=== PATIENT | female | born 1940 | race Caucasian/White ===

== ENCOUNTER → 2025-05-22 11:52 | Outpatient (REF) | payer MEDICARE, OTHER, SELFPAY | LOC: EMG 11:52 | PROVIDERS: ATTENDING PHYSICIAN Orthopaedic Surgery Hand Surgery; FAMILY PHYSICIAN Internal Medicine | DX: M25.512 Pain in left shoulder (principal); M75.41 Impingement syndrome of right shoulder; M25.511 Pain in right shoulder; R20.0 Anesthesia of skin; R20.2 Paresthesia of skin | CPT/HCPCS: 73200; 95886; 95909 ==

== ENCOUNTER → 2025-05-25 11:34 | Outpatient (REF) | payer MEDICARE, OTHER, SELFPAY ==
[2025-05-25 12:29] LABS: Hematocrit 38.4 % (37.0-47.0); Hemoglobin 12.9 g/dL (12.0-16.0); Mean Corp Hgb Conc. 33.6 g/dL (33.0-37.0); Mean Corpuscular Volume 89.7 fL (81.0-99.0); Nucleated Red Blood Cells % 0 %; Platelet Count 313 10^3/uL (130-400); Red Cell Dist. Width 14.0 % (11.5-14.5)
[2025-05-25 14:25] LABS: Blood Urea Nitrogen 17 mg/dl (7-17); Calcium 10.0 mg/dl (8.4-10.2); Carbon Dioxide 28 mmol/L (22-30); Chloride 102 mmol/L (98-107); Glucose 93 mg/dl (70-99); Potassium 4.7 mmol/L (3.5-5.1); Sodium 136 mmol/L (135-145); eGFR > 60.00
== END ==
LOC: REG 11:34
PROVIDERS: ATTENDING PHYSICIAN Orthopaedic Surgery Hand Surgery; FAMILY PHYSICIAN Internal Medicine
DX: Z01.818 Encounter for other preprocedural examination (principal)
CPT/HCPCS: 36415; 80048; 85025

== ENCOUNTER 2025-05-29 07:03 | Day surgery (SDC) | payer MEDICARE, OTHER, SELFPAY ==
--- NOTE | 2025-05-25 15:17 | CM ---
Orthopedic Case Management Assessment
Demographics: Patient lives with spouse at [address], [place] [address], in a [address] community with elevator.
Living situation: 55+ community with elevator, patient is independent with adl's and ambulation.
Support Person Post Operatively: Patient's spouse who is 88 y.o to assist with transportation.
Support Person Post Operatively: Spouse
History of
VN: No
SNF: No
Outpatient [facility]
Has patient purchased required equipment: Patient has a Sling
PCP: Dr Kee
Pharmacy: [facility] in [place]
Post Operative Discharge Plan: Patient has been scheduled for same day surgery with Dr Gomez for Left shoulder surgery, patient reports that her 88 y.o spouse plans to support her and provided transportation to hospital and patient will schedule
her outpatient physical therapy with [facility] when cleared by physician.
[2025-05-29] VITALS (9 sets, daily range): BP systolic 124–139; BP diastolic 66–82; BMI 32.8
[2025-05-29] MEDS: CELEBREX 200 MG PO (08:46)
[2025-05-29] MEDS: NORMOSOL-R/PLASMALYTE-A 1000 IV (08:46)
[2025-05-29] MEDS: TYLENOL 1000 MG PO (08:46)
[2025-05-29] MEDS: VANCOCIN 530 MG IV (09:01)
--- NOTE | 2025-05-29 09:08 | W.DS.TRANS ---
DC Summary - [employer]
-
Discharge Instructions:
Sleep Apnea Risk Low
Discharge Diagnosis/Procedures L shoulder periprosthetic fx
Diet As tolerated
Activity No strenuous activity
Driving Restrictions No driving
Instructions:
Stand-Alone Forms: SDS Total Shoulder D/C Inst.
Changes to Home Medications: Yes
Discharge Medications:
DC Medications w/original date entered in [facility]
Arthrosmooth 1 dose PO DAILY 05/28/25
Held on 05/29/25. Instructions: Resume on 06/06/25.
B Complex 1 dose PO DAILY 05/28/25
Fish Oil 1 dose PO DAILY 05/28/25
Held on 05/29/25. Instructions: Resume on 06/06/25.
Homocysteine Formula 1 dose PO BID 05/28/25
Held on 05/29/25. Instructions: Resume on 06/06/25.
K Force 1 dose PO BID 05/28/25
Held on 05/29/25. Instructions: Resume on 06/06/25.
alendronate 70 mg tablet (Fosamax) 70 mg PO QWEEK 05/28/25
biotin 1 dose PO DAILY 05/28/25
calcium 200 mg-vitamin D3 1.25 mcg-magnesium 50 mg capsule (Ossopan MD) 1 cap PO DAILY 05/28/25
Held on 05/29/25. Instructions: Resume on 06/06/25.
levothyroxine 88 mcg tablet 88 mcg PO DAILY 05/28/25
magnesium 200 mg tablet 400 mg PO HS 05/28/25
montelukast 10 mg tablet 10 mg PO HS 05/28/25
Saccharomyces boulardii 250 mg capsule (Florastor) 250 mg PO BID #1 cap 05/29/25
acetaminophen 325 mg tablet (Tylenol) 650 mg (2 x 325 mg) PO QID #1 tab 05/29/25
aspirin 81 mg tablet 81 mg PO BID Blood clot prevention/tx #1 tab 05/29/25
celecoxib 200 mg capsule 200 mg PO DAILY Anti-inflammatory #14 caps 05/29/25
docusate sodium 100 mg capsule (Colace) 100 mg PO BID stool softner #1 cap 05/29/25
doxycycline hyclate 100 mg capsule 100 mg PO BID infection prevention #10 caps 05/29/25
famotidine 20 mg tablet 20 mg PO HS GI prophylaxis #30 tabs 05/29/25
hydrochlorothiazide 12.5 mg tablet 12.5 mg PO DAILY #0 tabs 05/29/25
magnesium hydroxide 400 mg/5 mL oral suspension (Milk of Magnesia) 30 ml PO HS PRN constipation #1 mL 05/29/25
ondansetron 4 mg disintegrating tablet 4 mg PO Q6H PRN n/v #20 tabs 05/29/25
oxycodone 5 mg tablet 5 mg PO Q6H PRN 1 tab moderate pain, 2 tabs severe pain #30 tabs 05/29/25
sennosides 8.6 mg tablet (Senokot) 17.2 mg (2 x 8.6 mg) PO BID laxative #2 tabs 05/29/25
valsartan 80 mg tablet 80 mg PO DAILY #0 tabs 05/29/25
Home Medication Changes
Saccharomyces boulardii 250 mg capsule (Florastor) 250 mg PO BID #1 cap 05/29/25
acetaminophen 325 mg tablet (Tylenol) 650 mg (2 x 325 mg) PO QID #1 tab 05/29/25
aspirin 81 mg tablet 81 mg PO BID Blood clot prevention/tx #1 tab 05/29/25
celecoxib 200 mg capsule 200 mg PO DAILY Anti-inflammatory #14 caps 05/29/25
docusate sodium 100 mg capsule (Colace) 100 mg PO BID stool softner #1 cap 05/29/25
doxycycline hyclate 100 mg capsule 100 mg PO BID infection prevention #10 caps 05/29/25
famotidine 20 mg tablet 20 mg PO HS GI prophylaxis #30 tabs 05/29/25
hydrochlorothiazide 12.5 mg tablet 12.5 mg PO DAILY #0 tabs 05/29/25
magnesium hydroxide 400 mg/5 mL oral suspension (Milk of Magnesia) 30 ml PO HS PRN constipation #1 mL 05/29/25
ondansetron 4 mg disintegrating tablet 4 mg PO Q6H PRN n/v #20 tabs 05/29/25
oxycodone 5 mg tablet 5 mg PO Q6H PRN 1 tab moderate pain, 2 tabs severe pain #30 tabs 05/29/25
sennosides 8.6 mg tablet (Senokot) 17.2 mg (2 x 8.6 mg) PO BID laxative #2 tabs 05/29/25
valsartan 80 mg tablet 80 mg PO DAILY #0 tabs 05/29/25
Pending Results: No
== END 2025-05-29 14:15 | disposition home or self-care (01) ==
LOC: SDS 07:03
PROVIDERS: ATTENDING PHYSICIAN Orthopaedic Surgery Hand Surgery
DX: T84.098A Other mechanical complication of other internal joint prosthesis, initial encounter (principal); Y79.2 Prosthetic and other implants, materials and accessory orthopedic devices associated with adverse incidents; M97.32XA Periprosthetic fracture around internal prosthetic left shoulder joint, initial encounter; Z96.612 Presence of left artificial shoulder joint
CPT/HCPCS: 23470; 20680; C1776; C1713; 87070; 87176; 87205